=== PATIENT | male | born 1955 | race Caucasian/White ===

== ENCOUNTER 2020-07-24 13:32 | Observation (INO) | payer BC ==
[2020-07-24 14:58] LABS: #Lymphocytes 0.9 thou/uL (1.20-3.40); #Monocytes 1.1 thou/uL (0.11-0.59); #Neutrophils 14.7 thou/uL (1.40-6.50); %Basophils 0.2 % (0.0-1.0); %Eosinophils 0.2 % (0.0-10.0); %Lymphocytes 5.1 % (21.0-51.0); %Monocytes 6.6 % (0.0-10.0); %Neutrophils 87.9 % (42.0-75.0); Mean Corpuscular HGB CONC 32.7 g/dL (32.0-36.0); Mean Corpuscular Hemoglobin 29.6 pg (27.0-31.0); Mean Corpuscular Volume 90.5 fL (78.0-98.0); Mean Platelet Volume 8.4 fL (7.4-10.4); Platelet Count 178 thou/uL (130-400); RBC Distribution Width 11.9 % (11.5-14.5); Red Blood Cell (RBC) Count 4.74 mill/uL (4.70-6.10); White Blood Cell (WBC) Count 16.7 thou/uL (4.8-10.8)
[2020-07-24 15:23] LABS: CKMB 2.3 ng/mL (0-6.6)
[2020-07-24 15:26] LABS: ALT (SGPT) 84 U/L (8-55); AST (SGOT) 143 U/L (5-34); Albumin 3.6 g/dL (3.4-4.8); Alkaline Phosphatase 81 U/L (40-110); Anion Gap 11 mmol/L (10-20); BUN (Urea Nitrogen) 20 mg/dL (8.4-25.7); Bilirubin, Total 1.2 mg/dL (0.2-1.2); Calc. Creatinine Clearance 0 mL/min (70-130); Calcium 8.4 mg/dL (7.8-10.44); Carbon Dioxide 27 mmol/L (23-31); Chloride 110 mmol/L (98-107); Globulin 1.7 g/dL (2.4-3.5); Glucose 133 mg/dL (80-115); Lipase 34 U/L (8-78); Potassium 4.4 mmol/L (3.5-5.1); Protein, Total 5.3 g/dL (5.8-8.1); Sodium 144 mmol/L (136-145)
[2020-07-24] MEDS ORDERED: Enoxaparin Sodium 80 MG/0.8 ML SYRINGE ONE (15:45)
[2020-07-24] MEDS ORDERED: Acetaminophen 500 MG TAB ONE (16:36)
[2020-07-24] MEDS ORDERED: Nitroglycerin 0.4 MG TAB (25 Tab Bottle) SL PRN (17:13)
[2020-07-24] MEDS ORDERED: Acetaminophen 325 MG TAB PO PRN (17:13)
[2020-07-24 17:53] VITALS: BMI 22.6
[2020-07-24 18:35] LABS: Troponin I Less than 0.010 ng/mL (< 0.028)
[2020-07-24] MEDS: Famotidine 20 MG TAB PO SCH (21:13)
[2020-07-24 22:46] LABS: Troponin I Less than 0.010 ng/mL (< 0.028)
[2020-07-25 01:53] LABS: SARS-CoV-2 PCR by NAA Not Detected (NotDetected)
[2020-07-25 05:21] LABS: #Lymphocytes 0.9 thou/uL (1.20-3.40); #Monocytes 0.9 thou/uL (0.11-0.59); #Neutrophils 8.9 thou/uL (1.40-6.50); %Basophils 0.3 % (0.0-1.0); %Eosinophils 0.2 % (0.0-10.0); %Lymphocytes 8.5 % (21.0-51.0); %Monocytes 8.2 % (0.0-10.0); %Neutrophils 82.9 % (42.0-75.0); Hemoglobin 14.4 g/dL (14.0-18.0); Mean Corpuscular HGB CONC 32.4 g/dL (32.0-36.0); Mean Corpuscular Hemoglobin 29.1 pg (27.0-31.0); Mean Corpuscular Volume 89.6 fL (78.0-98.0); Mean Platelet Volume 8.5 fL (7.4-10.4); Platelet Count 192 thou/uL (130-400); RBC Distribution Width 12.1 % (11.5-14.5); Red Blood Cell (RBC) Count 4.95 mill/uL (4.70-6.10); White Blood Cell (WBC) Count 10.7 thou/uL (4.8-10.8)
[2020-07-25 05:52] LABS: Anion Gap 12 mmol/L (10-20); BUN (Urea Nitrogen) 14 mg/dL (8.4-25.7); Calc. Creatinine Clearance 78 mL/min (70-130); Carbon Dioxide 25 mmol/L (23-31); Cardiac Risk 4.1 (Less than 4.5); Chloride 107 mmol/L (98-107); Cholesterol 231 mg/dl (< 200 Desired); Glucose 129 mg/dL (80-115); HDL Cholesterol 56 mg/dL (>60 Neg Risk); LDL Cholesterol, Calculated 150 mg/dL; Sodium 140 mmol/L (136-145); Triglycerides 124 mg/dL (Less than 150)
[2020-07-25] MEDS: Famotidine 20 MG TAB PO SCH (07:48)
[2020-07-25] MEDS ORDERED: Aspirin Chewable 81 MG TAB PO SCH (09:00)
[2020-07-25 15:36] VITALS: BP 139/62; TEMP 98.9
== END 2020-07-25 16:46 | disposition home or self-care (01) ==
LOC: ERS 13:32 → 2SW 15:57
PROVIDERS: ADMIT Internal Medicine; ATTEND Internal Medicine
DX: R07.89 Other chest pain (principal); R10.13 Epigastric pain; R73.09 Other abnormal glucose; R03.0 Elevated blood-pressure reading, without diagnosis of hypertension; D72.829 Elevated white blood cell count, unspecified; R74.01 Elevation of levels of liver transaminase levels; I45.10 Unspecified right bundle-branch block; N13.30 Unspecified hydronephrosis; I95.9 Hypotension, unspecified; R00.1 Bradycardia, unspecified; Z20.822 Contact with and (suspected) exposure to COVID-19
CPT/HCPCS: 36415; 71045; 76705; 78452; 80048; 80053; 80061; 82553; 83690; 84484; 85025; 85379; 87635; 93005; 93017; 94760; 96372; A9500; G0378; J1650; U0003; U0005

== ENCOUNTER 2020-08-15 10:35 | Outpatient (CLI) | payer BC | END 2020-08-15 10:36 | disposition home or self-care (01) | LOC: NM 10:35 | PROVIDERS: ATTEND Physician Assistant | DX: R10.11 Right upper quadrant pain (principal); K82.9 Disease of gallbladder, unspecified | CPT/HCPCS: 78227; A9537 ==

== ENCOUNTER 2025-03-19 11:10 | Outpatient (CLI) | payer BC | END 2025-03-19 11:11 | disposition home or self-care (01) | LOC: BICRAD 11:10 | PROVIDERS: ATTEND Family Medicine | DX: M54.16 Radiculopathy, lumbar region (principal) ==